=== PATIENT | female | born 1940 | race Caucasian/White ===

== ENCOUNTER → 2016-08-05 | Day surgery (SDC) | payer MEDICARE, BC ==
[~2016-08-05] MED LIST: ASCORBIC ACID500 MG PO; BLADDER CONTROL ADVA PO; BORAGE OIL PO; CINNAMON500 MG PO; CITRACAL + D M1 EACH PO; CO Q-10100 MG PO; EVENING PRIMR1000 MG PO; FISH OIL 1,0001 EAC1 PO; GINKGO BILOBA60 M1 PO; HORSE CHESTNUT300 MG PO; JOINT ADVANTAGE GOLD PO; KEFLEX500 MG PO; KELP1 EACH PO; LASIX20 MG PO; LEVAQUIN500 MG PO; LEVOTHROID (SY88 MCG PO; MELATONIN10 M2 PO; N-ACETYL-L-CYS600 MG PO; NATURE-THROID65 MG PO; NORCO 5-325 TA1 EACH PO; PROBIOTIC1 EAC1 PO; QUERCETIN DIHYDR1 GM PO; VALERIAN ROOT100 MG PO; VITAMIN E400 UNI2 PO; WOMEN'S DAILY1 EACH PO; [UNRECOGNIZED DRUG - OTHER] PO; [UNRECOGNIZED DRUG - OTHER] PO; [UNRECOGNIZED DRUG - OTHER] PO; [UNRECOGNIZED DRUG - OTHER] PO
[2016-08-05 09:56] LABS: BASOPHIL % 0.6 %; EOSINOPHIL # 0.2 K/uL (0.0-0.5); EOSINOPHIL % 3.4 %; HEMATOCRIT 42.6 % (33.0-46.0); HEMOGLOBIN 14.1 g/dL (10.0-15.0); IMMATURE GRANULOCYTE % 0.4 %; LYMPHOCYTE # 1.8 K/uL (0.8-4.0); LYMPHOCYTE % 26.3 %; MCH 30.4 pg (27.0-34.0); MCHC 33.1 gm/dL (32.0-36.5); MCV 91.8 fl (83.0-98.0); MONOCYTE # 0.6 K/uL (0.0-1.0); MONOCYTE % 9.4 %; MPV 11.2 fl (9.4-12.4); NEUTROPHIL # (ANC) 4.1 K/uL (1.8-7.8); NEUTROPHIL % 59.9 %; NRBC % 0 /100WBC (0-0.00); PLATELET COUNT 281 K/uL (150-450); RBC 4.64 M/uL (3.50-5.50); RDW-CV 13.7 % (11.9-14.6); WBC 6.8 K/uL (4.0-11.0)
[2016-08-05 10:12] LABS: ALBUMIN 3.6 gm/dL (3.5-5.0); ALK PHOS 87 IU/L (33-138); ALT 22 IU/L (12-78); ANION GAP 13.2 (10.0-19.0); AST 20 IU/L (10-40); BLOOD UREA NITROGEN 18 mg/dL (6-24); CALCIUM 9.2 mg/dL (8.5-10.5); CHLORIDE 104 mMol/L (96-110); CO2 27 mMol/L (22-32); CREATININE 0.8 mg/dL (0.5-1.1); ESTIMATED GFR (MDRD EQUATION) > 60; POTASSIUM 4.2 mMol/L (3.7-5.1); SODIUM 140 mMol/L (135-145); TOTAL BILIRUBIN 0.5 mg/dL (0.0-1.5); TOTAL PROTEIN 6.9 g/dL (6.0-8.4)
== END ==
LOC: GPOC 08-04 13:00 → GSDC 09:13
PROVIDERS: Surgery Vascular Surgery
DX: R22.41 Localized swelling, mass and lump, right lower limb (principal); Z53.9 Procedure and treatment not carried out, unspecified reason; Z88.0 Allergy status to penicillin; Z88.1 Allergy status to other antibiotic agents; Z88.2 Allergy status to sulfonamides; E66.9 Obesity, unspecified; Z79.899 Other long term (current) drug therapy
CPT/HCPCS: J7030

== ENCOUNTER → 2016-08-12 | Day surgery (SDC) | payer MEDICARE, BC ==
[~2016-08-12] VITALS: Ht 154.9 cm; Wt 72.0 kg
--- NOTE | ~2016-08-12 | OR ---
PATIENT'S NAME: KAYCEE MCALLISTER [facility] AGE: 75 Y [address] ROOM: [place] [address] LOCATION: [facility] ADMIT DATE: 08/12/2016 OR/Procedure Report DISCHARGE DATE: FAMILY PHYSICIAN: Nancy Delacruz APRN ATTENDING PHYSICIAN: JAVIER SAMUELS SURGEON: Javier Samuels MD DAIRY BAR MANAGER: DATE OF PROCEDURE: 08/12/2016 PREOPERATIVE DIAGNOSIS: Mass to right leg. POSTOPERATIVE DIAGNOSIS: Mass to right leg. PROCEDURE: Excision and removal of right leg mass. FOUNTAIN ATTENDANT: AYLA Johnson. ANESTHESIA: General. ESTIMATED BLOOD LOSS: 10 mL. OPERATIVE FINDINGS: Hard firm mass sent for frozen revealed to be a benign tumor. DESCRIPTION OF PROCEDURE: The patient was brought into the operating room, placed supine on the operative table, placed under general anesthesia, and prepped and draped in a sterile manner. Preoperative time-out was performed. The patient received preoperative antibiotics. We made a transverse incision along the area of this hard mass in the right magdaleno, dissected down, found a dense hard layer of tissue which we circumferentially dissected and removed from the underlying soft tissue. This mass was extremely hard to touch and heavily calcified. We decided to send it for frozen section, which was determined that it was benign. We then removed any further sections of this mass that we could find and then copiously irrigated the wound. We then reapproximated the skin using interrupted mattress sutures. We covered the leg in an Morgan wrap for pressure. The patient tolerated the procedure well and was transferred to recovery room and home later that day. JAVIER SAMUELS MD FKM/modl PATIENT'S NAME: KAYCEE MCALLISTER [facility] AGE: 75 Y [address] ROOM: [place] [address] LOC[address]: [facility] ADMIT DATE: 08/12/2016 OR/Procedure Report DISCHARGE DATE: FAMILY PHYSICIAN: Nancy Delacruz APRN ATTENDING PHYSICIAN: JAVIER SAMUELS /[id number] d: 08/12/162055 t: 08/16/16 1200, OPERATIVE SUMMARY
== END | disposition disaster alternative care site (69) ==
LOC: GSDC 07:06
PROC: 0JBN0ZZ Excision of Right Lower Leg Subcutaneous Tissue and Fascia, Open Approach (ICD-10-PCS; principal; 2016-08-12)
DX: M79.89 Other specified soft tissue disorders (principal); Z88.0 Allergy status to penicillin; Z88.1 Allergy status to other antibiotic agents; Z88.2 Allergy status to sulfonamides; Z88.8 Allergy status to other drugs, medicaments and biological substances; Z98.41 Cataract extraction status, right eye; Z98.42 Cataract extraction status, left eye; Z98.890 Other specified postprocedural states; Z79.899 Other long term (current) drug therapy
CPT/HCPCS: J7120